=== PATIENT | male | born 1960 | race Caucasian/White ===

== ENCOUNTER 2018-01-02 08:45 | Outpatient (CLI) | payer OTHER | END 2018-01-02 08:46 | disposition home or self-care (01) | LOC: DTY/OP 08:45 | PROVIDERS: ATTEND Obstetrics & Gynecology | DX: E11.9 Type 2 diabetes mellitus without complications (principal) | CPT/HCPCS: 97802 ==

== ENCOUNTER 2019-02-11 12:33 | Inpatient (IN) | payer OTHER ==
[2019-02-11] MEDS ORDERED: Ketorolac Tromethamine 30 MG/ML VIAL ONE (13:42)
[2019-02-11] MEDS ORDERED: Senokot S 8.6-50 MG TAB PO PRN (16:29)
[2019-02-11] MEDS ORDERED: Ondansetron ODT 4 MG TAB PO PRN (16:29)
[2019-02-11] MEDS ORDERED: HYDROcodone/Acetaminophen 5/325 mg Tablet PO PRN (16:29)
[2019-02-11] MEDS ORDERED: Dextrose 5% in Water 1,000 ML IV PRN (16:35)
[2019-02-11] MEDS ORDERED: HumaLOG 300 UNITS/3 ML VIAL SC PRN (16:35)
[2019-02-11] MEDS ORDERED: Dextrose 50% Abboject 50 ML SYRINGE SLOW IVP PRN (16:35)
[2019-02-11 17:22] VITALS: BMI 33.3
[2019-02-11 18:25] LABS: Troponin I Less than 0.010 ng/mL (< 0.028)
--- NOTE | 2019-02-11 18:37 | HP ---
PRIMARY CARE PHYSICIAN: Vicente Laureano MD CHIEF COMPLAINT: Chest pain and shortness of breath. HISTORY OF PRESENT ILLNESS: Mr. Dukes is a 58-year-old man, who reported to the emergency room at [place] today after experiencing 2 days of pressure-type chest to the left chest wall with shortness of breath. The patient reports he had a similar type of chest pain yesterday, resolved, and when it came back today, he decided to go ahead and get evaluated. Reports that he has had increasing shortness of breath, especially with exertion over the last several weeks. Has a history of anxiety, and he does have some shortness of breath with that, but reports that this sensation and feeling are different for him. The patient does report that the pain radiates up into his neck when it gets intense. The patient had an EKG in the emergency room in [place], which showed normal sinus rhythm at 80, normal axis, no ST-T wave changes. The patient was given aspirin. First troponin was undetectable, and he was sent over to [facility] for admission for ACS rule out. The patient does have a history of diabetes and depression. Takes low-dose lisinopril for kidney protection. States that his blood pressure usually runs in the 1-teens and takes a low-dose simvastatin for protection as well. PAST MEDICAL HISTORY: Kidney stones; diabetes, type 2, on insulin. PAST SURGICAL HISTORY: Had stents placed for the kidney stones, inguinal hernia x2 repaired, right ankle surgery. PSYCHIATRIC HISTORY: Has depression and anxiety, takes medications. SOCIAL HISTORY: Lives at home with his family. Currently uses tobacco. He chews "all day long". Denies actual smoking cigarettes. REVIEW OF SYSTEMS: The patient reports chest pain. Reports shortness of breath. Reports radiation of pain up into his neck. Denies any nausea or diaphoresis. All other systems are reviewed and are negative unless mentioned in the HPI. PHYSICAL EXAMINATION: VITAL SIGNS: Blood pressure 128/71, pulse is 75, respirations are 19, temperature is 97.8, pO2 saturations are 96% on room air. CONSTITUTIONAL: The patient appears nontoxic. He is alert and oriented to person, place, and time. HEENT: Head is atraumatic and normocephalic. Eyes; pupils are equally round and reactive to light. Extraocular muscles are intact. ENT; mouth exam is normal. Mucous membranes are moist. NECK: Normal range of motion. Trachea is midline. RESPIRATORY/CHEST: Breath sounds are clear. No wheezing is noted. Chest movement is symmetrical. CARDIOVASCULAR: Regular heart rate and rhythm. Heart sounds are normal. ABDOMEN: Nontender. Bowel sounds are heard. BACK: Normal inspection. Normal range of motion. No CVA tenderness. EXTREMITIES: Upper extremities; normal inspection. Normal range of motion. Radial pulses are equal. Lower extremities; normal inspection. Normal range of motion. Pedal pulses are normal. There is no edema noted. NEUROLOGIC: The patient is alert and oriented to person, place, and time. Speech is normal. SKIN: Warm, dry, and normal in color. PSYCHIATRIC: Has a normal affect. ALLERGIES: SULFA. CURRENT MEDICATIONS: 1. Lisinopril 10 mg p.o. daily. 2. Metformin 500 mg 2 times a day. 3. Chantix 1 tablet daily. 4. Prednisone 10 mg p.o. once a day. 5. Klonopin 1 mg p.o. p.r.n. 6. Seroquel 25 mg p.o. once a day. 7. Simvastatin 40 mg p.o. q.p.m. 8. Also takes insulin, but is not sure of which one and the amount. 9. Xanax 0.5 mg p.o. p.r.n. These medications need to be reconciled. PLAN AND ASSESSMENT: 1. Chest pain. The patient will have a stress test. Aspirin has been given in the ER. We will continue that daily. Fasting lipids will be done in the morning. TSH. 2. Diabetes, type 2. Accu-Cheks a.c. and at bedtime. Sliding scale insulin while the patient is admitted for coverage. 3. History of depression and anxiety. We will continue home medications. 4. Gastrointestinal and deep venous thrombosis prophylaxes have been started. 5. Hospital course is dependent on clinical findings. Job ID: [id number]
[2019-02-11] MEDS ORDERED: Nitroglycerin 0.4 MG TAB (25 Tab Bottle) ONE (18:42)
[2019-02-11] MEDS: Acetaminophen 325 MG TAB PO PRN (18:51)
[2019-02-11] MEDS: Famotidine 20 MG TAB PO SCH (18:51)
[2019-02-11] MEDS: Nitroglycerin 0.4 MG TAB (25 Tab Bottle) SL PRN (18:54)
[2019-02-11] MEDS ORDERED: ALPRAZolam 1 MG TAB PO PRN (19:33)
[2019-02-11] MEDS ORDERED: traMADol HCl 50 MG TAB PO PRN (19:33)
[2019-02-11] MEDS: Simvastatin 20 MG TAB PO SCH (20:46)
[2019-02-11] MEDS: Hydroxychloroquine Sulfate 200 MG TAB PO SCH (20:46)
[2019-02-11] MEDS: Insulin Glargine 50 UNITS in Pre-Filled Syringe SC SCH (20:47)
[2019-02-11] MEDS ORDERED: Non-Formulary Item 1 EACH (Insulin Glargine,Hum.Rec.Anlog [Basaglar Kwikpen U-100] 50 UNI SQ SCH (21:00)
[2019-02-12 05:10] LABS: #Basophils 0.1 thou/uL (0.0-0.2); #Eosinphils 0.3 thou/uL (0.0-0.7); #Lymphocytes 3.6 thou/uL (1.20-3.40); #Monocytes 0.7 thou/uL (0.11-0.59); #Neutrophils 4.3 thou/uL (1.40-6.50); %Basophils 0.7 % (0.0-1.0); %Eosinophils 3.5 % (0.0-10.0); %Lymphocytes 39.7 % (21.0-51.0); %Monocytes 7.6 % (0.0-10.0); %Neutrophils 48.4 % (42.0-75.0); Hemoglobin 13.6 g/dL (14.0-18.0); Mean Corpuscular HGB CONC 33.6 g/dL (32.0-36.0); Mean Corpuscular Hemoglobin 30.3 pg (27.0-31.0); Mean Corpuscular Volume 90.3 fL (78.0-98.0); Mean Platelet Volume 7.4 fL (7.4-10.4); Platelet Count 229 thou/uL (130-400); RBC Distribution Width 12.8 % (11.5-14.5); Red Blood Cell (RBC) Count 4.48 mill/uL (4.70-6.10)
[2019-02-12 05:30] LABS: Anion Gap 10 mmol/L (10-20); BUN (Urea Nitrogen) 20 mg/dL (8.4-25.7); Calc. Creatinine Clearance 96 mL/min (70-130); Calcium 9.6 mg/dL (7.8-10.44); Carbon Dioxide 27 mmol/L (22-29); Cardiac Risk 2.8 (Less than 4.5); Chloride 107 mmol/L (98-107); Cholesterol 94 mg/dl (< 200 Desired); Estimated GFR-MDRD 62; Glucose 125 mg/dL (70-105); HDL Cholesterol 33 mg/dL (>60 Neg Risk); LDL Cholesterol, Calculated 27 mg/dL; Potassium 3.9 mmol/L (3.5-5.1); Sodium 140 mmol/L (136-145); Triglycerides 168 mg/dL (Less than 150)
[2019-02-12] MEDS: Lisinopril 5 MG TAB PO SCH (07:51)
[2019-02-12] MEDS: Hydroxychloroquine Sulfate 200 MG TAB PO SCH ×2 (07:52→20:32)
[2019-02-12] MEDS: Insulin Glargine 50 UNITS in Pre-Filled Syringe SC SCH ×3 (07:52→20:34)
[2019-02-12] MEDS: Famotidine 20 MG TAB PO SCH ×2 (07:52→20:33)
[2019-02-12] MEDS: predniSONE 20 MG TAB PO SCH (07:52)
[2019-02-12] MEDS: Acetaminophen 325 MG TAB PO PRN ×2 (07:57→20:38)
[2019-02-12] MEDS ORDERED: (Vortioxetine Hydrobromide [Trintellix] 20 MG) PO SCH (09:00)
[2019-02-12] MEDS ORDERED: Enoxaparin Sodium 40 MG/0.4 ML SYRINGE SC SCH (09:00)
[2019-02-12] MEDS ORDERED: traMADol HCl 50 MG TAB PO PRN (09:10)
[2019-02-12] MEDS: Nitroglycerin 0.4 MG TAB (25 Tab Bottle) SL PRN ×3 (10:43→15:40)
--- NOTE | 2019-02-12 10:47 | NM ---
NM Cardiac Stress W EF WF HISTORY: Chest pain COMPARISON: None. FINDINGS: Examination is performed using 27 mCi of 90 9M technetium sestamibi on the stress and 30.6 mCi on the resting images. This shows a normal distribution of radiopharmaceutical without signs of ischemia or scar. Wall motion: There is symmetric contractility to the ventricle. Left ventricular ejection fraction: The calculated left ventricular ejection fraction is 60%. IMPRESSION: Unremarkable myocardial perfusion study.
[2019-02-12] MEDS ORDERED: Communication Order-Pharmacy FS SCH (13:45)
--- NOTE | 2019-02-12 14:25 | CON ---
DATE OF CONSULTATION: 02/12/2019 REASON FOR CONSULTATION: Chest pain. HISTORY OF PRESENT ILLNESS: Mr. Dukes is a pleasant 58-year-old white gentleman, who comes to the hospital for chest pain. He has had pain for the last 2 days. He states that the pain is described as a tightness in the midsternal area. It was continuous for about a day on Saturday, today is . He woke up yesterday and the pain was still there and actually continued to get worse as he walked around, so he decided to come in for evaluation. He was ruled out with negative troponins and had a stress test that was negative for reversible ischemia. When he came back from the stress test, he continued to have episodes of chest pain, described as a tightness in the midsternal area. He received a couple of nitro sublinguals and he felt better. Secondary to this, Cardiology was consulted. On my evaluation, Mr. Dukes is feeling better. He is pain free. He has a history of having had a heart catheterization about 20 years ago. He states that he was having pain similar to this, and he was told his heart arteries were fine. He had remote history of tobacco use, but quit about 20 years ago, but he has been dipping ever since. PAST MEDICAL HISTORY: 1. Renal stones. 2. Type 2 diabetes, insulin dependent. SURGICAL HISTORY: 1. Urethral stents secondary to kidney stones. 2. Inguinal hernia repair x2. 3. Right ankle surgery. SOCIAL HISTORY: Dips tobacco. Does not smoke. Remote history of tobacco, quit 20 years ago. No drug use. No alcohol use. OUTPATIENT MEDICATIONS: 1. Tramadol p.r.n. 2. Metformin 500 mg b.i.d. 3. Insulin glargine 50 units twice a day. 4. Simvastatin 10 mg q.h.s. 5. Plaquenil. 6. Brintellix 20 mg a day. 7. Prednisone 10 mg a day. 8. Lisinopril 5 mg a day. 9. Seroquel. 10. Alprazolam. 11. Humalog. ALLERGIES: NO KNOWN DRUG ALLERGIES. REVIEW OF SYSTEMS: A 12-point review of systems was done and all was negative unless stated in the history of present illness. FAMILY HISTORY: Noncontributory. PHYSICAL EXAMINATION: VITAL SIGNS: Temperature 99.3, pulse 73, respiratory rate 16, sat 98% on room air, and blood pressure 94/53. GENERAL: Awake, alert, and oriented x3. No distress. HEENT: Normocephalic and atraumatic. NECK: Supple. LUNGS: Clear. CARDIOVASCULAR: S1 and S2. No S3 or S4. No murmurs. ABDOMEN: Soft. Positive bowel sounds. EXTREMITIES: No edema. SKIN: Warm and dry. LABORATORY DATA: Laboratory work was reviewed. CBC has a white count of 9, hemoglobin of 13.6, hematocrit 40, and platelet count of 229. Coags, D-dimer was undetectable. Chemistry was unremarkable. Glucose was between 79 and 275. Troponin was undetectable x2. LDL was 27, HDL was 33, and triglycerides of 168. Stress test was reviewed, EF 60%. No reversible ischemia. ASSESSMENT AND PLAN: 1. Chest pain. This is ongoing. He had a normal stress test; however, he continues to have episodes of chest pain. We will try to further risk stratify with a heart catheterization. I spoke with him at length about the risks and benefits of the procedure. Risks including but not limited to stroke, myocardial infarction, , bleeding, need for blood transfusion, limb loss, organ loss, need for emergent bypass surgery, and need for redo procedures. The patient understands and verbalized understanding of this and agrees to proceed. Moderate sedation was also discussed. He agrees to this as well. 2. We will plan on doing right radial catheterization tomorrow. Thank you for letting us to participate in the care of your patient. We will follow. Job ID: [id number]
--- NOTE | 2019-02-12 17:13 | EKG ---
Test Reason : CP Blood Pressure : / mmHG Vent. Rate : 082 BPM Atrial Rate : 082 BPM P-R Int : 142 ms QRS Dur : 090 ms QT Int : 376 ms P-R-T Axes : 055 -41 001 degrees QTc Int : 439 ms Normal sinus rhythm Left axis deviation Abnormal ECG When compared with ECG of 11-FEB-2019 12:50, (Unconfirmed) No significant change was found Confirmed by DR. Santos MYERS ([id number]) on 02/12/2019 5:12:58 PM Referred By: SHERRI Confirmed By:DR. Santos MYERS
[2019-02-12] MEDS: Simvastatin 20 MG TAB PO SCH (20:31)
--- NOTE | 2019-02-12 22:19 | PDOC.HOSPP ---
- Subjective Encounter Date: 02/12/19 Encounter Time: 14:00 Subjective: Patient seen and examined for CP. On and off chest pain - resolving with nitro. No other complaints. No overnight events - Objective Vital Signs & Weight: Vital Signs (12 hours) Temp Pulse Resp BP BP Pulse Ox 02/12/19 19:59 98.4 F 91 20 111/63 96 02/12/19 19:53 14 98 02/12/19 16:00 98.2 F 94 25 H 117/59 L 93 L 02/12/19 15:47 16 101/55 L 02/12/19 11:35 99.3 F 73 16 94/53 L 98 Weight Weight 226 lb I&O: 02/11/19 02/12/19 02/13/19 06:59 06:59 06:59 Intake Total 360 900 Balance 360 900 Result Diagrams: 02/12/19 04:48 02/12/19 04:48 Additional Labs: Accuchecks 02/12/19 02/12/19 02/12/19 20:31 16:26 10:38 POC Glucose 207 H 271 H 178 H Radiology Reviewed by me: Yes (CXR - negative) EKG Reviewed by me: Yes (Tele SR) Hospitalist ROS - Review of Systems Respiratory: denies: cough, dry, shortness of breath, hemoptysis, SOB with excertion, pleuritic pain, sputum, wheezing, other Cardiovascular: denies: chest pain, palpitations, orthopnea, paroxysmal noc. dyspnea, edema, light headedness, other - Medication Medications: Active Medications Generic Name Dose Route Start Last Admin Trade Name Freq PRN Reason Stop Dose Admin Acetaminophen 650 mg 02/11/19 16:29 02/12/19 20:38 Tylenol PO 650 mg Q4H PRN Administration Headache/Fever/Mild Pain (1-3) Albuterol/Ipratropium 3 ml 02/11/19 18:15 02/12/19 19:53 Duoneb NEB 3 ml [id number] PRN Administration SOB &/or Wheezing Famotidine 20 mg 02/11/19 21:00 02/12/19 20:33 Pepcid PO 20 mg BID KIRIT Administration Hydroxychloroquine Sulfate 200 mg 02/11/19 21:00 02/12/19 20:32 Plaquenil PO 200 mg BID KIRIT Administration Insulin Glargine 50 units/ 0.5 mls @ 0 mls/hr 02/11/19 21:00 02/12/19 20:34 Miscellaneous Medication SC 02/13/19 00:01 0.5 mls BID KIRIT Administration Insulin Human Lispro 0 units 02/11/19 16:35 02/12/19 17:47 Humalog SC 02/13/19 00:01 4 unit .MILD SLIDING SCALE PRN Administration Mild Correctional Scale Lisinopril 5 mg 02/12/19 09:00 02/12/19 07:51 Zestril PO 5 mg DAILY KIRIT Administration Nitroglycerin 0.4 mg 02/11/19 18:43 02/12/19 15:40 Nitrostat SL 0.4 mg Q5MIN PRN Administration Chest Pain Prednisone 10 mg 02/12/19 09:00 02/12/19 07:52 Prednisone PO 10 mg DAILY KIRIT Administration Quetiapine Fumarate 50 mg 02/11/19 21:00 02/12/19 20:33 Seroquel PO 50 mg HS KIRIT Administration Simvastatin 10 mg 02/11/19 21:00 02/12/19 20:31 Zocor PO 10 mg HS KIRIT Administration - Exam General Appearance: NAD Neck: supple, no JVD Heart: RRR, no gallops Respiratory: CTAB, no rales Gastrointestinal: soft, non-tender, normal bowel sounds Extremities: no edema Hosp A/P (1) Chest pain Code(s): R07.9 - CHEST PAIN, UNSPECIFIED Status: Acute (2) HTN (hypertension) Code(s): I10 - ESSENTIAL (PRIMARY) HYPERTENSION Status: Chronic (3) DM2 (diabetes mellitus, type 2) Status: Chronic Qualifiers: Chronic kidney disease stage: stage 2 (mild) (4) Obesity (BMI 30.0-34.9) Code(s): E66.9 - OBESITY, UNSPECIFIED Status: Chronic (5) Anxiety Code(s): F41.9 - ANXIETY DISORDER, UNSPECIFIED Status: Chronic - Plan Stress test - no reversible ischemia Consult Cardiology Cont sliding scale Cont ASA Cont other meds as above
[2019-02-13] MEDS: Acetaminophen 325 MG TAB PO PRN (00:36)
[2019-02-13] MEDS: Sodium Chloride 0.9% 1,000 ML IV SCH ×2 (00:39→09:26)
[2019-02-13] MEDS: Hydroxychloroquine Sulfate 200 MG TAB PO SCH ×2 (05:19→20:49)
[2019-02-13] MEDS: predniSONE 20 MG TAB PO SCH (05:19)
[2019-02-13] MEDS: Famotidine 20 MG TAB PO SCH ×2 (05:20→20:49)
[2019-02-13] MEDS: Lisinopril 5 MG TAB PO SCH (05:21)
[2019-02-13] MEDS ORDERED: Lidocaine 1% (PF) 30 ML VIAL ONE ×2 (09:30→10:14)
[2019-02-13] MEDS ORDERED: Iopamidol 370 76% 100 ML VIAL ONE (09:39)
[2019-02-13] MEDS ORDERED: Iopamidol 370 76% 50 ML VIAL FS ONE (09:39)
[2019-02-13] MEDS ORDERED: Verapamil 5 MG/2 ML VIAL ONE (10:15)
[2019-02-13] MEDS ORDERED: Heparin 10,000 UNITS/1 ML VIAL ONE (10:15)
[2019-02-13] MEDS ORDERED: Nitroglycerin 100MG/250ML BOT 250 ML ONE (10:15)
[2019-02-13] MEDS ORDERED: Midazolam HCl 2 mg/2 ml Vial ONE (10:23)
[2019-02-13] MEDS ORDERED: Fentanyl 100 MCG/2 ML VIAL ONE (10:23)
[2019-02-13] MEDS ORDERED: TICAGRELOR 90 MG TABLET ONE (11:04)
[2019-02-13] MEDS ORDERED: Morphine 2 MG/ML SYRINGE SLOW IVP PRN (11:19)
[2019-02-13] MEDS ORDERED: Sodium Chloride 0.9% 500 ML IV SCH (11:30)
[2019-02-13] MEDS ORDERED: Diabetic Tussin 200 MG/10 ML UDCUP PO PRN (11:58)
[2019-02-13] MEDS ORDERED: guaiFENesin ER 600 MG TAB PO SCH (12:15)
--- NOTE | 2019-02-13 16:55 | EKG ---
Test Reason : C/P Blood Pressure : / mmHG Vent. Rate : 067 BPM Atrial Rate : 067 BPM P-R Int : 158 ms QRS Dur : 106 ms QT Int : 410 ms P-R-T Axes : 064 -33 -03 degrees QTc Int : 433 ms Normal sinus rhythm Left axis deviation Abnormal ECG When compared with ECG of 12-FEB-2019 10:57, No significant change was found Confirmed by DR. Santos MYERS ([id number]) on 02/13/2019 4:55:09 PM Referred By: SHERRI Confirmed By:DR. Santos MYERS
[2019-02-13] MEDS: HumaLOG 300 UNITS/3 ML VIAL SC PRN (18:01)
[2019-02-13] MEDS: guaiFENesin ER 600 MG TAB PO SCH (20:49)
[2019-02-13] MEDS: Simvastatin 20 MG TAB PO SCH (20:49)
[2019-02-13] MEDS: TICAGRELOR 90 MG TABLET PO SCH (20:50)
--- NOTE | 2019-02-13 21:02 | PDOC.HOSPP ---
- Subjective Encounter Date: 02/13/19 Encounter Time: 14:30 Subjective: Patient seen and examined for CP/Abn stress test. s/p RCA stent. No new complaints. No overnight events - Objective Vital Signs & Weight: Vital Signs (12 hours) Temp Pulse Pulse Resp BP BP BP 02/13/19 19:39 02/13/19 18:56 98.6 F 90 12 119/65 02/13/19 15:43 99.0 F 91 18 118/59 L 02/13/19 14:09 93 125/64 02/13/19 11:50 97.3 F L 76 16 113/62 02/13/19 11:40 73 18 113/62 02/13/19 09:23 119/67 Pulse Ox Pulse Ox 02/13/19 19:39 92 L 02/13/19 18:56 92 L 02/13/19 15:43 97 02/13/19 14:09 91 L 02/13/19 11:50 96 02/13/19 11:40 96 02/13/19 09:23 Weight Weight 226 lb I&O: 02/12/19 02/13/19 02/14/19 06:59 06:59 06:59 Intake Total 360 1588 1290 Balance 360 1588 1290 Result Diagrams: 02/12/19 04:48 02/12/19 04:48 Additional Labs: Accuchecks 02/13/19 02/13/19 02/13/19 20:31 16:42 11:52 POC Glucose 202 H 177 H 88 02/13/19 06:01 POC Glucose 106 EKG Reviewed by me: Yes (Tele SR) Hospitalist ROS - Review of Systems Respiratory: denies: cough, dry, shortness of breath, hemoptysis, SOB with excertion, pleuritic pain, sputum, wheezing, other Cardiovascular: denies: chest pain, palpitations, orthopnea, paroxysmal noc. dyspnea, edema, light headedness, other - Medication Medications: Active Medications Generic Name Dose Route Start Last Admin Trade Name Freq PRN Reason Stop Dose Admin Acetaminophen 650 mg 02/11/19 16:29 02/13/19 00:36 Tylenol PO 650 mg Q4H PRN Administration Headache/Fever/Mild Pain (1-3) Albuterol/Ipratropium 3 ml 02/11/19 18:15 02/12/19 19:53 Duoneb NEB 3 ml [id number] PRN Administration SOB &/or Wheezing Famotidine 20 mg 02/11/19 21:00 02/13/19 20:49 Pepcid PO 20 mg BID KIRIT Administration Guaifenesin 600 mg 02/13/19 21:00 02/13/19 20:49 Mucinex PO 600 mg Q12HR KIRIT Administration Hydroxychloroquine Sulfate 200 mg 02/11/19 21:00 02/13/19 20:49 Plaquenil PO 200 mg BID KIRIT Administration Insulin Human Lispro 0 units 02/13/19 17:37 02/13/19 18:01 Humalog SC 2 unit .MODERATE SLIDING SC PRN Administration Moderate Correctional Scale Lisinopril 5 mg 02/12/19 09:00 02/13/19 05:21 Zestril PO Not Given DAILY KIRIT Nitroglycerin 0.4 mg 02/11/19 18:43 02/12/19 15:40 Nitrostat SL 0.4 mg Q5MIN PRN Administration Chest Pain Prednisone 10 mg 02/12/19 09:00 02/13/19 05:19 Prednisone PO 10 mg DAILY KIRIT Administration Quetiapine Fumarate 50 mg 02/11/19 21:00 02/13/19 20:50 Seroquel PO 50 mg HS KIRIT Administration Simvastatin 10 mg 02/11/19 21:00 02/13/19 20:49 Zocor PO 10 mg HS KIRIT Administration Ticagrelor 90 mg 02/13/19 21:00 02/13/19 20:50 Brilinta PO 90 mg BID KIRIT Administration - Exam General Appearance: NAD Neck: supple, no JVD Heart: RRR, no rubs Respiratory: CTAB, no wheezes, no ronchi Gastrointestinal: soft, non-tender, normal bowel sounds Extremities: no edema Hosp A/P (1) Chest pain Code(s): R07.9 - CHEST PAIN, UNSPECIFIED Status: Acute (2) HTN (hypertension) Code(s): I10 - ESSENTIAL (PRIMARY) HYPERTENSION Status: Chronic (3) DM2 (diabetes mellitus, type 2) Status: Chronic Qualifiers: Chronic kidney disease stage: stage 2 (mild) (4) Obesity (BMI 30.0-34.9) Code(s): E66.9 - OBESITY, UNSPECIFIED Status: Chronic (5) Anxiety Code(s): F41.9 - ANXIETY DISORDER, UNSPECIFIED Status: Chronic (6) CAD (coronary artery disease) Code(s): I25.10 - ATHSCL HEART DISEASE OF [place] CORONARY ARTERY W/O ANG PCTRS Status: Acute (7) Abnormal stress test Status: Acute - Plan s/p RCA stent Cont dual antiplatelet Rx Resume Lantus at low dose Cont sliding scale Cont other meds as above Dc home once cleard by Cardiology
[2019-02-13] MEDS: Insulin Glargine 25 UNITS in Pre-Filled Syringe SC SCH (21:09)
[2019-02-14 04:36] LABS: #Eosinphils 0.3 thou/uL (0.0-0.7); #Lymphocytes 2.1 thou/uL (1.20-3.40); #Monocytes 0.7 thou/uL (0.11-0.59); #Neutrophils 6.8 thou/uL (1.40-6.50); %Basophils 0.2 % (0.0-1.0); %Eosinophils 3.2 % (0.0-10.0); %Monocytes 6.9 % (0.0-10.0); %Neutrophils 68.7 % (42.0-75.0); Hemoglobin 13.6 g/dL (14.0-18.0); Mean Corpuscular HGB CONC 34.4 g/dL (32.0-36.0); Mean Corpuscular Hemoglobin 31.3 pg (27.0-31.0); Mean Corpuscular Volume 91.1 fL (78.0-98.0); Mean Platelet Volume 7.3 fL (7.4-10.4); Platelet Count 218 thou/uL (130-400); RBC Distribution Width 12.7 % (11.5-14.5); Red Blood Cell (RBC) Count 4.34 mill/uL (4.70-6.10); White Blood Cell (WBC) Count 9.9 thou/uL (4.8-10.8)
[2019-02-14 05:12] LABS: ALT (SGPT) 20 U/L (8-55); AST (SGOT) 13 U/L (5-34); Albumin 3.9 g/dL (3.5-5.0); Alkaline Phosphatase 95 U/L (40-150); Anion Gap 13 mmol/L (10-20); BUN (Urea Nitrogen) 14 mg/dL (8.4-25.7); Bilirubin, Total 0.5 mg/dL (0.2-1.2); Calc. Creatinine Clearance 96 mL/min (70-130); Calcium 9.2 mg/dL (7.8-10.44); Carbon Dioxide 23 mmol/L (22-29); Chloride 106 mmol/L (98-107); Estimated GFR-MDRD 62; Globulin 2.3 g/dL (2.4-3.5); Glucose 219 mg/dL (70-105); Potassium 3.9 mmol/L (3.5-5.1); Protein, Total 6.2 g/dL (6.0-8.3); Sodium 138 mmol/L (136-145)
[2019-02-14] MEDS: HumaLOG 300 UNITS/3 ML VIAL SC PRN (06:11)
[2019-02-14] MEDS: Acetaminophen 325 MG TAB PO PRN ×2 (07:54→12:14)
[2019-02-14] MEDS ORDERED: Aspirin Chewable 81 MG TAB PO SCH (09:00)
[2019-02-14] MEDS: Insulin Glargine 25 UNITS in Pre-Filled Syringe SC SCH (09:46)
[2019-02-14] MEDS: Hydroxychloroquine Sulfate 200 MG TAB PO SCH (09:47)
[2019-02-14] MEDS: Lisinopril 5 MG TAB PO SCH (09:47)
[2019-02-14] MEDS: guaiFENesin ER 600 MG TAB PO SCH (09:47)
[2019-02-14] MEDS: Famotidine 20 MG TAB PO SCH (09:47)
[2019-02-14] MEDS: predniSONE 20 MG TAB PO SCH (09:47)
[2019-02-14] MEDS: TICAGRELOR 90 MG TABLET PO SCH (09:59)
[2019-02-14 12:40] VITALS: BP 111/59; TEMP 98.7
--- NOTE | 2019-02-14 13:27 | EKG ---
Test Reason : CHEST PAIN Blood Pressure : / mmHG Vent. Rate : 082 BPM Atrial Rate : 082 BPM P-R Int : 138 ms QRS Dur : 094 ms QT Int : 374 ms P-R-T Axes : 051 -42 016 degrees QTc Int : 436 ms Normal sinus rhythm Left axis deviation Abnormal ECG Confirmed by EMILY LOTT, PHUC Isaacs ([id number]), news video editor FRANCISCO STEWART ([id number]) on 02/14/2019 1:26:51 PM Referred By: EMILY Confirmed By:PHUC DIAZ MD
--- NOTE | 2019-02-14 15:50 | PDOC.CPN ---
- Subjective Date: 02/14/19 Time: 15:48 - Review of Systems General: denies: fever/chills, weight/appetite/sleep changes, night sweats, fatigue Respiratory: denies: cough, congestion, shortness of breath, exercise intolerance Cardiovascular: denies: chest pain, palpitation, edema, paroxysmal nocturnal dyspnea, orthopnea Gastrointestinal: denies: nausea, vomiting, diarrhea, constipation, abd pain, GI bleeding Musculoskeletal: denies: pain, tenderness, stiffness, swelling, arthritis/ arthralgias Neurological: denies: numbness, syncope, seizure, weakness - Objective Allergies/Adverse Reactions: Allergies Allergy/AdvReac Type Severity Reaction Status Date / Time No Known Allergies Allergy Unverified 02/11/19 16:35 Visit Medications: Current Medications Acetaminophen (Tylenol) 650 mg PO Q4H PRN PRN Reason: Headache/Fever/Mild Pain (1-3) Last Admin: 02/14/19 12:14 Dose: 650 mg Albuterol/Ipratropium (Duoneb) 3 ml NEB [id number] PRN PRN Reason: SOB &/or Wheezing Last Admin: 02/12/19 19:53 Dose: 3 ml Alprazolam (Xanax) 1 mg PO DAILY PRN PRN Reason: Anxiety Aspirin (Aspirin Chewable) 81 mg PO DAILY [facility] Last Admin: 02/14/19 09:47 Dose: 81 mg Dextrose/Water (Dextrose 50%) 25 gm SLOW IVP PRN PRN PRN Reason: Hypoglycemia Famotidine (Pepcid) 20 mg PO BID [facility] Last Admin: 02/14/19 09:47 Dose: 20 mg Glucagon (Glucagon) 1 mg IM PRN PRN PRN Reason: Hypoglycemia Guaifenesin (Mucinex) 600 mg PO Q12HR [facility] Last Admin: 02/14/19 09:47 Dose: 600 mg Guaifenesin (Robitussin Sf) 200 mg PO Q4H PRN PRN Reason: Cough Last Admin: 02/14/19 02:50 Dose: 200 mg Hydroxychloroquine Sulfate (Plaquenil) 200 mg PO BID [facility] Last Admin: 02/14/19 09:47 Dose: 200 mg Dextrose/Water (D5w) 1,000 mls @ 0 mls/hr IV .Q0M PRN PRN Reason: Hypoglycemia Insulin Glargine 25 units/ (Miscellaneous Medication) 0.25 mls @ 0 mls/hr SC BID [facility] Last Admin: 02/14/19 09:46 Dose: 0.25 mls Insulin Human Lispro (Humalog) 0 units SC .MODERATE SLIDING SC PRN PRN Reason: Moderate Correctional Scale Last Admin: 02/14/19 06:11 Dose: 4 unit Lisinopril (Zestril) 5 mg PO DAILY [facility] Last Admin: 02/14/19 09:47 Dose: 5 mg Metoprolol Succinate (Toprol Xl) 25 mg PO DAILY [facility] Last Admin: 02/14/19 09:47 Dose: 25 mg Morphine Sulfate (Morphine) 2 mg SLOW IVP Q4H PRN PRN Reason: Moderate Chest Pain (4-6) Nitroglycerin (Nitrostat) 0.4 mg SL Q5MIN PRN PRN Reason: Chest Pain Last Admin: 02/12/19 15:40 Dose: 0.4 mg Ondansetron HCl (Zofran Odt) 4 mg PO Q6H PRN PRN Reason: Nausea/Vomiting Prednisone (Prednisone) 10 mg PO DAILY [facility] Last Admin: 02/14/19 09:47 Dose: 10 mg Quetiapine Fumarate (Seroquel) 50 mg PO [facility] Last Admin: 02/13/19 20:50 Dose: 50 mg Senna/Docusate Sodium (Senokot S) 2 tab PO BID PRN PRN Reason: Constipation Simvastatin (Zocor) 10 mg PO HS [facility] Last Admin: 02/13/19 20:49 Dose: 10 mg Sodium Chloride (Flush - Normal Saline) 10 ml IVF PRN PRN PRN Reason: Saline Flush Ticagrelor (Brilinta) 90 mg PO BID [facility] Last Admin: 02/14/19 09:59 Dose: 90 mg Tramadol HCl (Ultram) 50 mg PO Q4H PRN PRN Reason: Moderate Pain (4-6) Vital Signs & Weight: Vital Signs Temp Pulse Pulse Pulse Resp BP BP 02/14/19 11:56 98.7 F 76 20 02/14/19 10:43 82 93 110/60 121/64 02/14/19 07:59 98.9 F 97 16 BP Pulse Ox Pulse Ox 02/14/19 11:56 111/59 L 93 L 02/14/19 10:43 93 L 02/14/19 07:59 122/68 94 L Weight 218 lb 12.8 oz - Physical Exam General: alert & oriented x3, appears well Neck: supple neck Cardiac: regular rate and rhythm, no murmur Lungs: clear to auscultation, no wheeze, rales, rhonchi Neuro: grossly intact Abdomen: unremarkable - Labs Result Diagrams: 02/14/19 04:22 02/14/19 04:22 Troponin/CKMB Troponin I Less than 0.010 ng/mL (< 0.028) 02/12/19 19:54 - Assessment/Plan Assessment/Plan: 1. CAD s/p PCI-RCA with LEVI 2. Tobacco abuse 3. DM-II Stable. No changes to care. F/U in 3-4 weeks.
--- NOTE | 2019-02-15 04:00 | DIS ---
DATE OF ADMISSION: 02/11/2019 DATE OF DISCHARGE: 02/14/2019 PRIMARY CARE PROVIDER: Vicente Laureano MD DISCHARGE DIAGNOSIS: Coronary artery disease. CONDITION OF PATIENT ON THE DAY OF DISCHARGE: Stable. I assessed Mr. Dukes on the day of discharge. He denies any chest pain or shortness of breath. Vital signs are stable. S1 and S2 are heard, regular. Lungs are clear to auscultation bilaterally. CONSULTATIONS DURING THIS HOSPITALIZATION: Cardiology, Roderick Oscar MD DISCHARGE MEDICATIONS: The patient has been started on aspirin 81 mg daily. He has been advised to resume metformin with evening dose on February 15, 2019. His Lantus insulin has been decreased to 25 units 2 times a day. His Toprol-XL dose has been increased to 25 mg daily. He has also been started on Brilinta 90 mg 2 times a day. Otherwise, no change was made to his pre-admission home medications, which include: 1. Xanax 1 mg daily as needed. 2. Humalog 5 units 2 times a day. 3. Plaquenil 200 mg 2 times a day. 4. Lisinopril 5 mg daily. 5. Prednisone 10 mg daily. 6. Seroquel 50 mg at bedtime. 7. Simvastatin 10 mg at bedtime. 8. Trintellix 20 mg daily. HOSPITAL COURSE: Mr. Dukes is a pleasant 58-year-old gentleman, who was admitted to [facility] on February 11, 2019, for chest pain. Please refer to Ms. Victor's history and physical note dated February 11, 2019, for further details. He had a normal stress test. However, he continued to have episodes of chest pain. He was seen by Cardiology Service and underwent cardiac catheterization. He was found to have severe proximal to mid RCA disease. He had PCI to RCA with drug-eluting stent. He had episodes of hypoglycemia, which is why his long-acting insulin dose was decreased. He was cleared for discharge by Cardiology Service and is being discharged home in a stable condition. On the day of discharge, he has sodium 138, potassium 3.9, creatinine 1.20, white count 9900, hemoglobin 13.6, and platelet count 218,000. FOLLOWUP APPOINTMENTS: The patient is advised to follow up with primary care provider in 3 days' time and with Dr. Oscar in 2 to 3 weeks' time. Many thanks for allowing me to participate in your patient's care. Please feel free to contact me with any questions or concerns. DISCHARGE DESTINATION: Home. TIME SPENT: Total amount of time spent coordinating this discharge: 32 minutes. Job ID: [id number]
--- NOTE | 2019-02-15 10:35 | EKG ---
Test Reason : S/P CATH Blood Pressure : / mmHG Vent. Rate : 089 BPM Atrial Rate : 089 BPM P-R Int : 122 ms QRS Dur : 094 ms QT Int : 360 ms P-R-T Axes : 030 -45 012 degrees QTc Int : 438 ms Normal sinus rhythm Left axis deviation Abnormal ECG When compared with ECG of 13-FEB-2019 07:43, (Unconfirmed) No significant change was found Confirmed by DR. Santos MYERS (3) on 02/15/2019 10:35:10 AM Referred By: JOHN Confirmed By:DR. Santos MYERS
== END 2019-02-14 17:03 | disposition home or self-care (01) | DRG 247 ==
LOC: ERS 12:33 → 2SW 13:00 → OBSVTOIN 13:00
PROVIDERS: ADMIT Internal Medicine; ATTEND Internal Medicine
PROC: 027034Z Dilation of Coronary Artery, One Artery with Drug-eluting Intraluminal Device, Percutaneous Approach (ICD-10-PCS; principal; 2019-02-13)
PROC: 4A023N7 Measurement of Cardiac Sampling and Pressure, Left Heart, Percutaneous Approach (ICD-10-PCS; 2019-02-13)
PROC: 02C03ZZ Extirpation of Matter from Coronary Artery, One Artery, Percutaneous Approach (ICD-10-PCS; 2019-02-13)
PROC: B2111ZZ Fluoroscopy of Multiple Coronary Arteries using Low Osmolar Contrast (ICD-10-PCS; 2019-02-13)
PROC: B2151ZZ Fluoroscopy of Left Heart using Low Osmolar Contrast (ICD-10-PCS; 2019-02-13)
DX: I25.10 Atherosclerotic heart disease of native coronary artery without angina pectoris (principal); F32.9 Major depressive disorder, single episode, unspecified; F41.9 Anxiety disorder, unspecified; F17.220 Nicotine dependence, chewing tobacco, uncomplicated; E11.22 Type 2 diabetes mellitus with diabetic chronic kidney disease; N18.2 Chronic kidney disease, stage 2 (mild); E66.9 Obesity, unspecified; Z68.30 Body mass index [BMI] 30.0-30.9, adult; I12.9 Hypertensive chronic kidney disease with stage 1 through stage 4 chronic kidney disease, or unspecified chronic kidney disease; E11.649 Type 2 diabetes mellitus with hypoglycemia without coma; Z87.442 Personal history of urinary calculi; Z88.2 Allergy status to sulfonamides; Z79.84 Long term (current) use of oral hypoglycemic drugs; Z79.4 Long term (current) use of insulin; Z79.52 Long term (current) use of systemic steroids; Z79.899 Other long term (current) drug therapy
CPT/HCPCS: 36415; 36416; 76942; 78452; 80048; 80053; 80061; 84443; 84484; 85025; 85347; 85379; 90471; 90732; 92933; 93005; 93010; 93017; 93458; 93798; 94640; 96374; 99152; 99153; A9500; C1760; C1769; C1874; C1887; C9602; G0009; J0153; J1644; J1650; J1815; J1885; J2001; J2250; J3010; J7512; Q9967

== ENCOUNTER 2019-02-24 09:51 | Inpatient (IN) | payer OTHER ==
[2019-02-24 10:40] LABS: Hemoglobin 14.2 g/dL (14.0-18.0); Mean Corpuscular HGB CONC 33.3 g/dL (32.0-36.0); Mean Corpuscular Hemoglobin 29.8 pg (27.0-31.0); Mean Corpuscular Volume 89.5 fL (78.0-98.0); Mean Platelet Volume 7.4 fL (7.4-10.4); Platelet Count 338 thou/uL (130-400); RBC Distribution Width 12.7 % (11.5-14.5); Red Blood Cell (RBC) Count 4.76 mill/uL (4.70-6.10); White Blood Cell (WBC) Count 21.8 thou/uL (4.8-10.8)
--- NOTE | 2019-02-24 10:41 | RAD ---
EXAM: Single view of the chest HISTORY: Weakness COMPARISON: 02/11/2019 FINDINGS: Single view of the chest shows a normal sized cardiomediastinal silhouette. There is no erica dence of consolidation, mass, or pleural effusion. The bones are unremarkable. IMPRESSION: No evidence of acute cardiopulmonary disease
[2019-02-24 10:46] LABS: ALT (SGPT) 26 U/L (8-55); AST (SGOT) 22 U/L (5-34); Albumin 4.6 g/dL (3.5-5.0); Alkaline Phosphatase 99 U/L (40-150); Anion Gap 15 mmol/L (10-20); BUN (Urea Nitrogen) 20 mg/dL (8.4-25.7); Bilirubin, Total 0.5 mg/dL (0.2-1.2); CK (CPK) 120 U/L (30-200); Calc. Creatinine Clearance 0 mL/min (70-130); Calcium 10.1 mg/dL (7.8-10.44); Carbon Dioxide 21 mmol/L (22-29); Chloride 107 mmol/L (98-107); Estimated GFR-MDRD 60; Globulin 2.4 g/dL (2.4-3.5); Potassium 4.3 mmol/L (3.5-5.1); Sodium 139 mmol/L (136-145)
[2019-02-24 10:59] LABS: Band 17 % (5-11); Glucose 51 mg/dL (70-105); Lymphocytes 13 % (21-51); MDiff Complete? YES; Monocytes 5 % (0-10); Neutrophil 64 % (42-75); RBC Morphology Normal; Reactive Lymphocytes 1 % (0-10)
[2019-02-24] MEDS ORDERED: Dextrose 50% Abboject 50 ML SYRINGE ONE (11:01)
[2019-02-24] MEDS ORDERED: Piperacillin/Tazobactam 4.5 GM VIAL ONE ×2 (11:08→11:09)
[2019-02-24] MEDS ORDERED: Dextrose 50% Abboject 50 ML SYRINGE SLOW IVP SCH (11:30)
[2019-02-24] MEDS ORDERED: Benzonatate 100 MG CAP PO PRN (12:46)
[2019-02-24] MEDS ORDERED: HumaLOG 300 UNITS/3 ML VIAL SC PRN (12:46)
[2019-02-24] MEDS ORDERED: diphenhydrAMINE 25 MG CAP PO PRN (12:46)
[2019-02-24] MEDS ORDERED: Dextrose 5% in Water 1,000 ML IV PRN (12:46)
[2019-02-24] MEDS ORDERED: hydrALAZINE 20 MG/ML VIAL SLOW IVP PRN ×2 (12:46→17:18)
[2019-02-24] MEDS ORDERED: Dextrose 50% Abboject 50 ML SYRINGE SLOW IVP PRN (12:46)
[2019-02-24] MEDS ORDERED: Docusate 100 MG CAP PO PRN (12:46)
[2019-02-24] MEDS ORDERED: Calcium Carbonate 500 MG ChewTAB PO PRN (12:47)
[2019-02-24] MEDS ORDERED: Bisacodyl 5 MG TAB PO PRN (12:47)
[2019-02-24] MEDS ORDERED: Senokot S 8.6-50 MG TAB PO PRN (12:47)
[2019-02-24] MEDS ORDERED: HYDROcodone/Acetaminophen 7.5/325 mg Tablet PO PRN (12:47)
[2019-02-24] MEDS ORDERED: HYDROcodone/Acetaminophen 5/325 mg Tablet PO PRN (12:47)
[2019-02-24 14:32] VITALS: BMI 32.2
[2019-02-24] MEDS: ALPRAZolam 0.5 MG TAB PO SCH ×2 (14:53→16:21)
[2019-02-24] MEDS: Acetaminophen 325 MG TAB PO PRN (14:53)
[2019-02-24] MEDS ORDERED: Heparin 5,000 UNITS/ML VIAL SC SCH (15:00)
[2019-02-24] MEDS ORDERED: ALPRAZolam 0.5 MG TAB PO PRN (17:06)
[2019-02-24] MEDS: Piperacillin/Tazobactam 3.375 GM in Sodium Chloride 0.9% 100 ML IVPB SCH (17:27)
[2019-02-24] MEDS: HumaLOG 300 UNITS/3 ML VIAL SC PRN (17:27)
[2019-02-24] MEDS ORDERED: Ondansetron ODT 4 MG TAB PO PRN (17:32)
[2019-02-24] MEDS ORDERED: Ondansetron PF 4 MG/2 ML Vial IVP PRN (17:32)
--- NOTE | 2019-02-24 18:33 | PDOC.HHP ---
Hospitalist HPI - History of Present Illness chest pain/shortness of breath History of Present Illness: Mr. Dukes is a very pleasant 58 yo man who presents with sudden onset of lightheadedness, left sided chest pain down his left arm and shortness of breath. He was standing by his truck when it happened and states he had blurred vision, feeling as though he might pass out. The pain was a 4/10 in severity, and started at approximately 8am. He states it was constant and did not ease until he got to the ED and since then its been a 1/10 in severity. He describes a pressure in his chest. Has not had any pain or sob since having stent done on 02/[address] Oscar. He was having similar symptoms prior to stenting. Patient states he has felt well in himself except for persistently low appetite since he was discharged. Reports having a cough productive for clear sputum and was started on antibiotics by his PCP last Saturday. He has continued to feel better and denies any fever or chills. No hemoptysis. No pleuritic type chest pain. Patient states he has been checking his vitals at home and his BP has been in the 130s systolic. His HR has been between 60-90. He is scheduled to follow-up with Dr. Oscar on 03/18. Of note, patient is on chronic steroids for RA and recently undergoing taper. Was on Prednisone 10 mg PO daily last week and currently on 7.5 mg. Plan is to cut down to 5 mg PO daily next week. ED Course: In the ED he underwent laboratory studies which are notable for WCC of 22. Lactic acid normal. Patient was started on broad spectrum IV Abx. He was given IV fluids x 2L. Also due to low blood glucose of 50 he was given an amp of D50W. D-Dimer was checked and negative. Initial troponin negative. CXR: no acute intrathoracic abnormalities. EKG showed NSR, HR 97, with normal ST segments and normal T waves. Hospitalist ROS - Review of Systems Constitutional: reports: malaise. denies: fever, chills, sweats, weakness, other Eyes: reports: other (blurred vision at start of symptoms but resolved.) ENT: reports: nose congestion. denies: ear pain, ear discharge, nose pain, nose discharge, mouth pain, mouth swelling, throat pain, throat swelling, other Respiratory: reports: cough (clear sputum), shortness of breath (this morning, resolved since then). denies: dry, hemoptysis, SOB with excertion, pleuritic pain, sputum, wheezing, other Cardiovascular: reports: chest pain (as per HPI), light headedness. denies: palpitations, orthopnea, paroxysmal noc. dyspnea, edema, other Gastrointestinal: reports: other (lack of appetite since recent discharge). denies: nausea, vomiting, abdominal pain, diarrhea, constipation, melena, hematochezia Genitourinary: denies: dysuria, frequency, incontinence, hematuria, retention, other Musculoskeletal: reports: arm pain (left arm pain associated with chest pain, has resolved). denies: neck pain, shoulder pain, back pain, hand pain, leg pain , foot pain, other Skin: denies: rash, lesions, soren, bruising, other Neurological: denies: weakness, numbness, incoordination, change in speech, confusion, seizures, other - Medication Medications: Active Medications Generic Name Dose Route Start Last Admin Trade Name Freq PRN Reason Stop Dose Admin Acetaminophen 650 mg 02/24/19 12:47 02/24/19 14:53 Tylenol PO 650 mg Q4H PRN Administration Headache/Fever/Mild Pain (1-3) Piperacillin Sod/Tazobactam 100 mls @ 200 mls/hr 02/24/19 18:00 02/24/19 17: 27 Sod 3.375 gm/ Sodium Chloride IVPB 100 mls Q6HR KIRIT Administration Insulin Human Lispro 0 units 02/24/19 12:46 02/24/19 17:27 Humalog SC 4 unit .MODERATE SLIDING SC PRN Administration Moderate Correctional Scale Hospitalist History - Past Medical History Cardiac: reports: CAD Psych: reports: Anxiety, Depression Rheumatologic: reports: Rheumatoid arthritis Renal/: reports: Other (Nephrolithiasis) Endocrine: reports: Diabetes - Past Surgical History Past Surgical History: reports: Hernia Repair (Inguinal hernia x 2), Other ( Right ankle repair) Other Surgical History: Cardiac stent, 02/11 - Family History Family History: reports: no pertinent history - Social History Tobacco Type: chewing tobacco ("All day") Alcohol: reports: None Drugs: reports: none Living Situation: Alone Activity level: independent ambulation - Exam General Appearance: NAD Eye: PERRL, anicteric sclera ENT: normocephalic atraumatic, no oropharyngeal lesions, moist mucosa Neck: supple, symmetric, no lymphadenopathy Heart: RRR, no murmur, no gallops, normal peripheral pulses Respiratory: CTAB, no wheezes, no rales, no ronchi, normal chest expansion, no tachypnea Gastrointestinal: soft, non-tender, non-distended (obese), no palpable masses, no guarding, no rigidity Extremities: no edema Skin: normal turgor, no lesions, no rashes Neurological: cranial nerve grossly intact, normal sensation to touch, no weakness, no focal deficits Musculoskeletal: normal tone, normal strength, no muscle wasting Psychiatric: normal affect, normal behavior, A&O x 3 Hospitalist Results - Labs Result Diagrams: 02/25/19 04:14 02/25/19 04:14 Lab results: WBC 21.8 thou/uL (4.8-10.8) H 02/24/19 10:06 Hgb 14.2 g/dL (14.0-18.0) 02/24/19 10:06 Hct 42.6 % (42.0-52.0) 02/24/19 10:06 MCV 89.5 fL (78.0-98.0) 02/24/19 10:06 Plt Count 338 thou/uL (130-400) 02/24/19 10:06 Band Neuts % (Manual) 17 % (5-11) H 02/24/19 10:06 Sodium 139 mmol/L (136-145) 02/24/19 10:06 Potassium 4.3 mmol/L (3.5-5.1) 02/24/19 10:06 Chloride 107 mmol/L (98-107) 02/24/19 10:06 Carbon Dioxide 21 mmol/L (22-29) L 02/24/19 10:06 BUN 20 mg/dL (8.4-25.7) 02/24/19 10:06 Creatinine 1.24 mg/dL (0.7-1.3) 02/24/19 10:06 Glucose 51 mg/dL (70-105) L* 02/24/19 10:06 Lactic Acid 1.8 mmol/L (0.5-2.2) 02/24/19 11:06 Calcium 10.1 mg/dL (7.8-10.44) 02/24/19 10:06 Total Bilirubin 0.5 mg/dL (0.2-1.2) 02/24/19 10:06 AST 22 U/L (5-34) 02/24/19 10:06 ALT 26 U/L (8-55) 02/24/19 10:06 Alkaline Phosphatase 99 U/L (40-150) 02/24/19 10:06 Creatine Kinase 120 U/L (30-200) 02/24/19 10:06 Troponin I 0.017 ng/mL (< 0.028) 02/24/19 10:06 Serum Total Protein 7.0 g/dL (6.0-8.3) 02/24/19 10:06 Albumin 4.6 g/dL (3.5-5.0) 02/24/19 10:06 Lipase 30 U/L (8-78) 02/24/19 11:06 - Radiology Interpretation Chest x-ray Status: report reviewed by me Hospitalist H&P A/P - Problem (1) Shortness of breath Code(s): R06.02 - SHORTNESS OF BREATH Status: Acute Assessment and Plan: Has resolved, states not SOB as long as he is still. Recently treated for LRTI. CXR negative. Cough + clear sputum. Started on Broad spectrum antibiotics in ED, to be continued per Dr. Kang. D-Dimer negative. Echo requested. Will check BNP. Duonebs ordered PRN. (2) Cough productive of clear sputum Code(s): R05 - COUGH Status: Acute Assessment and Plan: Tessalon and Guiafensin ordered. (3) Leukocytosis Code(s): D72.829 - ELEVATED WHITE BLOOD CELL COUNT, UNSPECIFIED Status: Acute Assessment and Plan: Patient is on chronic steroids for rheumatoid arthritis, which I feel is likely causing Leukocytosis. Infective markers unremarkable and patient afebrile. No signs or symptoms of infection. UA/UCx requested. Blood cultures done in ED. Per Dr. Kang, given immunosuppression due to chronic steroids, IV Abx to be continued. Further changes as per culture results. (4) CAD (coronary artery disease) Code(s): I25.10 - ATHSCL HEART DISEASE OF [place] CORONARY ARTERY W/O ANG PCTRS Status: Acute (5) Chest pain Code(s): R07.9 - CHEST PAIN, UNSPECIFIED Status: Acute Assessment and Plan: Recent stent on 02/11, by Dr. Oscar. Initial troponin in ED normal. Further troponins to be held as per Dr. Kang's recommendations, given plan to consult Dr. Oscar. (6) DM2 (diabetes mellitus, type 2) Status: Chronic Qualifiers: Chronic kidney disease stage: stage 2 (mild) Assessment and Plan: Given low blood glucose will hold his home meds and initiate insulin sliding scale. (7) HTN (hypertension) Code(s): I10 - ESSENTIAL (PRIMARY) HYPERTENSION Status: Chronic Assessment and Plan: Hold BP meds given lightheadedness and BP on lower side. Will check orthostatic BPs. Monitor BP. (8) Lack of appetite Code(s): R63.0 - ANOREXIA Status: Acute Assessment and Plan: Open Die Inspector consult. Denies any nausea/vomiting. - Plan Plan: CODE STATUS: FULL. Surrogate decision maker is Ankita Dukes. Of note, per discussion with Dr. Kang patient is to be kept in Inpatient Status. ADDENDUM: I have notified Dr. Oscar of consultation request for tmrw, and upon case discussion Dr. Oscar has advised to trend troponins which I have added x 1, given first one was at 08:00. Also agreed with plan for Echo. Will see patient tonight.
[2019-02-24 19:57] LABS: Bilirubin Negative (Negative); Blood, Urine Negative (Negative); Glucose, Urine (Dipstick) Negative (Negative); Leukocyte Negative (Negative); Nitrite Negative (Negative); Protein, Urine (Dipstick) Negative (Neg-Trace); Urobilinogen 0.2 mg/dL (Less than 2)
[2019-02-24 20:07] LABS: Clarity Opaque (Clear)
[2019-02-24 20:09] LABS: Bacteria/HPF None Seen HPF (None Seen); Mucous/LPF 1+ LPF (<2+); RBC/HPF 0-3 HPF (0-3); Squamous Epithelial 0-3 HPF (0-3); WBC/HPF 0-3 HPF (0-3)
[2019-02-24 20:11] LABS: Urine Culture Reflex No No
[2019-02-24] MEDS ORDERED: Insulin Glargine 25 UNITS in Pre-Filled Syringe SC SCH (21:00)
[2019-02-24] MEDS ORDERED: TICAGRELOR 90 MG TABLET PO SCH (21:00)
[2019-02-24] MEDS ORDERED: Simvastatin 5 MG TAB PO SCH (21:00)
[2019-02-24] MEDS ORDERED: Vancomycin HCl 1 GM in Premix Bag 1 BAG IVPB SCH (21:00)
[2019-02-24] MEDS: Hydroxychloroquine Sulfate 200 MG TAB PO SCH (21:03)
[2019-02-24] MEDS: Famotidine 20 MG TAB PO SCH (21:06)
[2019-02-24] MEDS: Vancomycin HCl 1.5 GM in Sodium Chloride 0.9% 250 ML 300 ML IVPB SCH (22:50)
[2019-02-25] MEDS: Piperacillin/Tazobactam 3.375 GM in Sodium Chloride 0.9% 100 ML IVPB SCH ×3 (01:04→13:51)
[2019-02-25 05:11] LABS: #Eosinphils 0.3 thou/uL (0.0-0.7); #Monocytes 0.5 thou/uL (0.11-0.59); %Basophils 0.5 % (0.0-1.0); %Eosinophils 3.3 % (0.0-10.0); %Lymphocytes 38.5 % (21.0-51.0); %Monocytes 6.9 % (0.0-10.0); %Neutrophils 50.8 % (42.0-75.0); Hemoglobin 11.6 g/dL (14.0-18.0); Mean Corpuscular HGB CONC 33.2 g/dL (32.0-36.0); Mean Corpuscular Hemoglobin 30.6 pg (27.0-31.0); Mean Corpuscular Volume 92.3 fL (78.0-98.0); Mean Platelet Volume 7.3 fL (7.4-10.4); Platelet Count 249 thou/uL (130-400); RBC Distribution Width 12.6 % (11.5-14.5); Red Blood Cell (RBC) Count 3.79 mill/uL (4.70-6.10); White Blood Cell (WBC) Count 7.8 thou/uL (4.8-10.8)
[2019-02-25 05:24] LABS: Anion Gap 12 mmol/L (10-20); BUN (Urea Nitrogen) 16 mg/dL (8.4-25.7); Calc. Creatinine Clearance 79 mL/min (70-130); Calcium 8.7 mg/dL (7.8-10.44); Carbon Dioxide 23 mmol/L (22-29); Chloride 109 mmol/L (98-107); Estimated GFR-MDRD 51; Glucose 175 mg/dL (70-105); Potassium 4.5 mmol/L (3.5-5.1); Sodium 139 mmol/L (136-145)
[2019-02-25] MEDS ORDERED: Lisinopril 5 MG TAB PO SCH (09:00)
[2019-02-25] MEDS ORDERED: (Vortioxetine Hydrobromide [Trintellix] 20 MG) PO SCH (09:00)
[2019-02-25] MEDS ORDERED: TICAGRELOR 90 MG TABLET PO SCH (09:00)
[2019-02-25] MEDS ORDERED: Clopidogrel Bisulfate 75 MG TAB PO SCH (09:00)
[2019-02-25] MEDS ORDERED: predniSONE 5 MG TAB PO SCH ×2 (09:00)
[2019-02-25] MEDS ORDERED: Aspirin Chewable 81 MG TAB PO SCH (09:00)
[2019-02-25] MEDS: Famotidine 20 MG TAB PO SCH (09:11)
[2019-02-25] MEDS: Hydroxychloroquine Sulfate 200 MG TAB PO SCH (09:12)
--- NOTE | 2019-02-25 11:07 | CON ---
DATE OF CONSULTATION: 02/24/2019 REASON FOR CONSULTATION: Chest pain. HISTORY OF PRESENT ILLNESS: Mr. Dukes is a pleasant 58-year-old white gentleman, who comes to the hospital for lightheadedness and dizziness. He was admitted to the hospital on the 11 of February, at which point he underwent heart catheterization and had to undergo PCI to the RCA with a 3.0 x 20 mm drug-eluting stent. He did well postoperatively. He no longer had chest pain. He has been doing well up until earlier on the , in the morning, he had a sudden onset of dizziness. He noticed a little congestion. He felt that he was coughing a lot more than normal. He felt a bad headache as well. He decided to come in for further evaluation. He denies any chest pain, tightness, or pressure. PAST MEDICAL HISTORY: 1. CAD, status post PCI of the RCA just 2 weeks ago. 2. Kidney stones. 3. Type 2 diabetes, on chronic insulin. 4. Rheumatoid arthritis. SURGICAL HISTORY: 1. Urethral stent secondary to kidney stones. 2. Inguinal hernia repair x2. 3. Right ankle surgery. SOCIAL HISTORY: No smoking. Remote tobacco history, quit 20 years ago. Continues to dip. No drugs. No alcohol. OUTPATIENT MEDICATIONS: Include, 1. Lantus units b.i.d. 2. Xanax. 3. Aspirin 81 a day. 4. Plaquenil. 5. Humalog. 6. Lisinopril 5 mg a day. 7. Quetiapine. 8. Toprol-XL 25 mg a day. 9. Trintellix. 10. Brilinta 90 mg b.i.d. 11. Simvastatin 10 mg q.h.s. 12. Metformin 500 b.i.d. 13. Prednisone 7.5 mg a day. FAMILY HISTORY: Noncontributory. REVIEW OF SYSTEMS: A 12-point review of systems was done and was all negative unless stated in the history of present illness. PHYSICAL EXAMINATION: VITAL SIGNS: Temperature 97.7, pulse 66, respiratory rate 18, saturating 97% on room air, and blood pressure 110/56. GENERAL: Awake, alert, and oriented x3, in no distress. HEENT: Normocephalic and atraumatic. NECK: Supple. LUNGS: Clear. CARDIOVASCULAR: S1 and S2. No S3 or S4. No murmurs. ABDOMEN: Soft. Positive bowel sounds. EXTREMITIES: No edema. SKIN: Warm and dry. LABORATORY DATA: Laboratory work was reviewed. Troponins have been negative x2. Procalcitonin negative. Lipase is negative. His creatinine is a little bit up today from 1.2 to 1.4. His sugar was down when he came in originally at 50 up to 170s. Calcium is normal. UA with ketones, 4+ crystals, but no blood. ASSESSMENT: 1. Dizziness. 2. Recent stenting to the RCA, stable at this time. No evidence of acute coronary syndrome. 3. Acute on chronic kidney injury. PLAN: 1. Likely a little volume down. He has received fluids. He also received some D50 in the ER to raise his glucose. He has had low glucoses in the past and he does not feel this was low glucose as this is not how it feels. We will plan on doing a CT of the head to make sure there is nothing else going on that may make him dizzy. Most likely, he is just a little fluid down. 2. We will get an echocardiogram. 3. If all this is negative, he should be able to be discharged home from the cardiac perspective. Thank you for letting us to participate in the care of your patient. We will follow. Job ID: [id number]
[2019-02-25] MEDS: Acetaminophen 325 MG TAB PO PRN (11:14)
[2019-02-25] MEDS: HumaLOG 300 UNITS/3 ML VIAL SC PRN (11:14)
--- NOTE | 2019-02-25 11:55 | CT ---
CT OF THE BRAIN WITHOUT CONTRAST: Date: 02/25/19 COMPARISON: None. HISTORY: Patient had a heart stent placed on January 13. Blurry vision yesterday and headaches. Lightheadedness and syncope. TECHNIQUE: Multiple contiguous axial images were obtained in a CT of the brain without contrast. FINDINGS: The brain is normal in morphology and attenuation without focal lesions or confluent areas of infarct ion. There is no evidence of hydrocephalus, intracranial hemorrhage, or extra-axial fluid collection. The calvarium and overlying soft tissues are unremarkable. The visualized paranasal sinuses and masto id air cells are well aerated. IMPRESSION: No evidence of acute intracranial abnormality. POS: TPC
--- NOTE | 2019-02-25 13:18 | PDOC.HOSPP ---
- Subjective Encounter Date: 02/25/19 Encounter Time: 09:00 Subjective: no chest pain or sob is ambulating freely in room chewing tobacco - Objective Vital Signs & Weight: Vital Signs (12 hours) Temp Pulse Pulse Pulse Resp BP BP 02/25/19 09:45 82 80 135/74 129/68 02/25/19 09:10 84 83 134/83 135/74 02/25/19 08:15 02/25/19 07:30 97.7 F 66 18 02/25/19 05:00 61 02/25/19 04:00 97.8 F 58 L 16 BP BP Pulse Ox 02/25/19 09:45 02/25/19 09:10 02/25/19 08:15 97 02/25/19 07:30 117/57 L 97 02/25/19 05:00 120/66 02/25/19 04:00 92/51 L 98 Weight Weight 218 lb 8 oz I&O: 02/24/19 02/25/19 02/26/19 06:59 06:59 06:59 Intake Total 2130 Output Total 3100 Balance -970 Result Diagrams: 02/25/19 04:14 02/25/19 04:14 Additional Labs: Accuchecks 02/25/19 02/25/19 02/24/19 10:49 05:43 20:15 POC Glucose 170 H 149 H 154 H 02/24/19 02/24/19 16:38 14:16 POC Glucose 209 H 122 H Hospitalist ROS - Medication Medications: Active Medications Generic Name Dose Route Start Last Admin Trade Name Freq PRN Reason Stop Dose Admin Acetaminophen 650 mg 02/24/19 12:47 02/25/19 11:14 Tylenol PO 650 mg Q4H PRN Administration Headache/Fever/Mild Pain (1-3) Aspirin 81 mg 02/25/19 09:00 02/25/19 09:12 Aspirin Chewable PO 81 mg DAILY KIRIT Administration Famotidine 20 mg 02/24/19 21:00 02/25/19 09:11 Pepcid PO 20 mg BID KIRIT Administration Hydroxychloroquine Sulfate 200 mg 02/24/19 21:00 02/25/19 09:12 Plaquenil PO 200 mg BID KIRIT Administration Insulin Human Lispro 0 units 02/24/19 12:46 02/25/19 11:14 Humalog SC 2 unit .MODERATE SLIDING SC PRN Administration Moderate Correctional Scale Metoprolol Succinate 25 mg 02/25/19 09:00 02/25/19 09:12 Toprol Xl PO 25 mg DAILY KIRIT Administration Prednisone 7.5 mg 02/25/19 09:00 02/25/19 09:12 Prednisone PO 7.5 mg DAILY KIRIT Administration Quetiapine Fumarate 50 mg 02/24/19 21:00 02/24/19 21:03 Seroquel PO 50 mg HS KIRIT Administration Simvastatin 10 mg 02/24/19 21:00 02/24/19 21:06 Zocor PO 10 mg HS KIRIT Administration Ticagrelor 90 mg 02/25/19 09:00 02/25/19 09:11 Brilinta PO 90 mg BID KIRIT Administration - Exam General Appearance: awake alert Eye: PERRL, anicteric sclera ENT: no oropharyngeal lesions, moist mucosa Neck: supple, no JVD Heart: RRR, no murmur Respiratory: no wheezes, no rales Gastrointestinal: soft, non-tender, non-distended, normal bowel sounds Extremities: no cyanosis, no edema Neurological: cranial nerve grossly intact, no focal deficits Psychiatric: normal affect, A&O x 3 Hosp A/P (1) Chest pain Code(s): R07.9 - CHEST PAIN, UNSPECIFIED Status: Resolved (2) CAD (coronary artery disease) Code(s): I25.10 - ATHSCL HEART DISEASE OF [place] CORONARY ARTERY W/O ANG PCTRS Status: Chronic Qualifiers: Coronary Disease-Associated Artery/Lesion type: elem artery [place] vs. transplanted heart: elem heart Associated angina: without angina Qualified Code(s): I25.10 - Atherosclerotic heart disease of [place] coronary artery without angina pectoris (3) Anxiety Code(s): F41.9 - ANXIETY DISORDER, UNSPECIFIED Status: Chronic (4) DM2 (diabetes mellitus, type 2) Status: Chronic Qualifiers: Diabetes mellitus intermediate project manager insulin use: without intermediate project manager use (5) HTN (hypertension) Code(s): I10 - ESSENTIAL (PRIMARY) HYPERTENSION Status: Chronic Qualifiers: Hypertension type: essential hypertension Qualified Code(s): I10 - Essential (primary) hypertension (6) Obesity (BMI 30.0-34.9) Code(s): E66.9 - OBESITY, UNSPECIFIED Status: Chronic (7) Tobacco chew use Code(s): Z72.0 - TOBACCO USE Status: Chronic - Plan dizziness on arrival with chest pain has resolved now await echo results CT brain shows no cva hemostable dc plan home if echo shows no sig changes when compared to old one continue asp, brilinta, zocor, toprol xl, seroquel, prednisone, plaquenil and pepcid.
[2019-02-25] MEDS: Vancomycin HCl 1.5 GM in Sodium Chloride 0.9% 250 ML 300 ML IVPB SCH (13:51)
[2019-02-25 13:54] VITALS: BP 111/58; TEMP 97.9
--- NOTE | 2019-02-25 17:50 | DIS ---
DATE OF ADMISSION: 02/24/2019 DATE OF DISCHARGE: 02/25/2019 DISCHARGE DISPOSITION: Home. PRIMARY DISCHARGE DIAGNOSES: 1. Dizziness/near-syncope, resolved. 2. Chest pain, resolved. SECONDARY DISCHARGE DIAGNOSES: Coronary artery disease with prior stent placed to right coronary artery, diabetes mellitus type 2, tobacco chewing, hypertension, anxiety disorder, obesity. PROCEDURES DONE DURING HOSPITALIZATION: Chest x-ray showed no acute cardiopulmonary abnormality. CT brain without contrast showed no acute intracranial abnormality. Echo with 2D Doppler showed an EF of 50% to 55%. There was diastolic dysfunction. Also inferolateral hypokinesis was seen. Blood cultures x2, preliminary no growth. Initial white count of 21.8, discharge white count 7.8, hemoglobin and hematocrit 11 and 35, platelet count 249 with 50% neutrophils. BUN 16 and creatinine 1.4. Troponin x2 negative. Procalcitonin 0.09. Lipase was 30. Initial serum glucose was 51 on arrival. DISCHARGE MEDICATIONS: 1. Plaquenil 200 mg p.o. twice daily. 2. Humalog 5 units subcu twice daily. 3. Xanax 1 mg p.o. daily p.r.n. for anxiety. 4. Lantus 50 units subcu twice daily. 5. Lisinopril 5 mg p.o. daily. 6. Prednisone 7.5 mg p.o. daily. 7. Seroquel 50 mg p.o. at bedtime. 8. Simvastatin 10 mg p.o. at bedtime. 9. Trintellix 20 mg daily. 10. Aspirin 81 mg daily. 11. Metformin 500 mg p.o. twice daily. 12. Toprol-XL 25 mg daily. 13. Brilinta 90 mg twice daily. ALLERGIES: NO KNOWN DRUG ALLERGIES. DISCHARGE PLAN: The patient to follow up with his primary care physician, Dr. Vicente Laureano in 1 week. He needs to follow up with Dr. Oscar in 2 weeks. BRIEF COURSE DURING HOSPITALIZATION: The patient initially got admitted on the with complaints of chest pain and dizziness. The patient had significant coronary artery disease with prior history of stenting done to RCA in the early part of this month. He has had multiple workups done, which have all been negative so far. He was severely dehydrated and was gently hydrated during his stay here. Prior to discharge, he is ambulating and eating well. Echo was done, which showed inferolateral hypokinesis, likely the area of RCA lesion with recent stenting done. His CT brain did not reveal any acute intracranial abnormality. The patient's repeat white count of 7.8. Initial H and H were 14 and 42, a repeat one showing H and H of 11 and 35. Likely, the elevated white count was margination from severe dehydration. The patient did not have any fever here. He has remained hemodynamically stable. His chest pain has completely resolved. The patient was counseled regarding tobacco chewing. He is hemodynamically stable and has been cleared by Dr. Oscar for discharge. The patient needs to come to the ER if he develops fever or cough or expectoration. He is immunosuppressed with him being on prednisone with history of rheumatoid arthritis. His prednisone is slowly being tapered by his in class special education teacher. He is wanting to go home this evening. Please see a [id number] documentation for the day of discharge on [employer]. Job ID: [id number]
--- NOTE | 2019-02-25 17:58 | PDOC.CPN ---
- Subjective Date: 02/25/19 Time: 17:53 Interval history: He is doing well. he feels back to normal. - Review of Systems General: denies: fever/chills, weight/appetite/sleep changes, night sweats, fatigue Respiratory: denies: cough, congestion, shortness of breath, exercise intolerance Cardiovascular: denies: chest pain, palpitation, edema, paroxysmal nocturnal dyspnea, orthopnea Gastrointestinal: denies: nausea, vomiting, diarrhea, constipation, abd pain, GI bleeding Musculoskeletal: denies: pain, tenderness, stiffness, swelling, arthritis/ arthralgias Neurological: denies: numbness, syncope, seizure, weakness - Objective Allergies/Adverse Reactions: Allergies Allergy/AdvReac Type Severity Reaction Status Date / Time No Known Allergies Allergy Unverified 02/11/19 16:35 Visit Medications: Current Medications Acetaminophen (Tylenol) 650 mg PO Q4H PRN PRN Reason: Headache/Fever/Mild Pain (1-3) Last Admin: 02/25/19 11:14 Dose: 650 mg Hydrocodone Bitart/Acetaminophen ([place] 5/325) 1 tab PO Q4H PRN PRN Reason: Moderate Pain (4-6) Hydrocodone Bitart/Acetaminophen ([place] 7.5/325) 1 tab PO Q4H PRN PRN Reason: Severe Pain (7-10) Albuterol/Ipratropium (Duoneb) 3 ml NEB [id number] PRN PRN Reason: SOB &/or Wheezing Alprazolam (Xanax) 0.5 mg PO Q4H PRN PRN Reason: Anxiety Aspirin (Aspirin Chewable) 81 mg PO DAILY [facility] Last Admin: 02/25/19 09:12 Dose: 81 mg Benzonatate (Tessalon) 100 mg PO Q4H PRN PRN Reason: Cough Bisacodyl (Dulcolax) 10 mg PO DAILYPRN PRN PRN Reason: Constipation Calcium Carbonate (Tums) 1,000 mg PO Q4H PRN PRN Reason: Heartburn or Indigestion Dextrose/Water (Dextrose 50%) 25 gm SLOW IVP PRN PRN PRN Reason: Hypoglycemia Diphenhydramine HCl (Benadryl) 25 mg PO Q6H PRN PRN Reason: Itching & Insomnia Docusate Sodium (Colace) 100 mg PO BIDPRN PRN PRN Reason: Constipation Famotidine (Pepcid) 20 mg PO BID [facility] Last Admin: 02/25/19 09:11 Dose: 20 mg Glucagon (Glucagon) 1 mg IM PRN PRN PRN Reason: Hypoglycemia Hydralazine HCl (Apresoline) 10 mg SLOW IVP Q4H PRN PRN Reason: SBP Greater Than 180 Hydroxychloroquine Sulfate (Plaquenil) 200 mg PO BID [facility] Last Admin: 02/25/19 09:12 Dose: 200 mg Dextrose/Water (D5w) 1,000 mls @ 0 mls/hr IV .Q0M PRN PRN Reason: Hypoglycemia Insulin Human Lispro (Humalog) 0 units SC .MODERATE SLIDING SC PRN PRN Reason: Moderate Correctional Scale Last Admin: 02/25/19 11:14 Dose: 2 unit Insulin Human Lispro (Humalog) 0 units SC .BEDTIME SLIDING SC PRN PRN Reason: Bedtime Correctional Scale Metoprolol Succinate (Toprol Xl) 25 mg PO DAILY [facility] Last Admin: 02/25/19 09:12 Dose: 25 mg (Vortioxetine Hydrobromide [ Trintellix] 20 Mg) 20 mg PO DAILY [facility] Ondansetron HCl (Zofran Odt) 4 mg PO Q6H PRN PRN Reason: Nausea/Vomiting Ondansetron HCl (Zofran) 4 mg IVP Q6H PRN PRN Reason: Nausea/Vomiting Prednisone (Prednisone) 7.5 mg PO DAILY [facility] Last Admin: 02/25/19 09:12 Dose: 7.5 mg Quetiapine Fumarate (Seroquel) 50 mg PO [facility] Last Admin: 02/24/19 21:03 Dose: 50 mg Senna/Docusate Sodium (Senokot S) 2 tab PO BID PRN PRN Reason: Constipation Simvastatin (Zocor) 10 mg PO HS [facility] Last Admin: 02/24/19 21:06 Dose: 10 mg Ticagrelor (Brilinta) 90 mg PO BID [facility] Last Admin: 02/25/19 09:11 Dose: 90 mg Vital Signs & Weight: Vital Signs Temp Pulse Pulse Pulse Resp BP BP 02/25/19 11:17 97.9 F 74 20 02/25/19 09:45 82 80 135/74 129/68 02/25/19 09:10 84 83 134/83 135/74 02/25/19 08:15 02/25/19 07:30 97.7 F 66 18 BP BP BP BP Pulse Ox 02/25/19 11:17 125/63 118/58 L 111/58 L 98 02/25/19 09:45 02/25/19 09:10 02/25/19 08:15 97 02/25/19 07:30 117/57 L 97 Admit Weight 218 lb 8 oz Weight 218 lb 8 oz - Physical Exam General: alert & oriented x3, no apparent distress HEENT: mucus membranes moist, normocephaly Neck: supple neck, midline trachea Cardiac: no murmur, regular rate, regular rhythm Lungs: clear to auscultation, normal breath sounds Neuro: grossly intact, coordination normal Abdomen: active bowel sounds, soft, non-tender Skin: clear Musculoskeletal: normal range of motion, no pain - Labs Result Diagrams: 02/25/19 04:14 02/25/19 04:14 Troponin/CKMB Troponin I Less than 0.010 ng/mL (< 0.028) 02/24/19 18:35 - Telemetry Sinus rhythms and dysrhythmias: sinus rhythm - Assessment/Plan Assessment/Plan: 1. Pre syncope. 2. NORMA likely pre renal. 3. Anemia PLAN; - He is doing well. - Drop in Hgb likely due to dilution a she received IV fluids, no evidence of bleeding, no melena, hematemesis or hematochezia. - May D/C home. - Plan to follow up in 2-4 weeks with pre clinic CBC. - Continue Brilinta and aspirin for now.
--- NOTE | 2019-02-27 09:07 | PQF ---
[employer] Operator Crystal Reports Winform ViewerCLIFFORD AGUILAR RMEY MAURICIO MD [id number] CLINICAL DOCUMENTATION CLARIFICATION FORM: POST DISCHARGE Addendum to original discharge summary date: ____ Late entry note date: __ DATE: 02/27/2019 ATTN:REMY MAURICIO MD Please exercise your independent, professional judgment in responding to the clarification form. Clinical indicators are provided on the bottom of this form for your review Please check appropriate box(s): Syncope Due to: [ ] Acute kidney injury [ ] Anemia [ x ] Dehydration [ ] Other diagnosis [ ] Unable to determine For continuity of documentation, please document condition throughout progress notes and discharge summary. Thank You. CLINICAL INDICATORS - SIGNS / SYMPTOMS / LABS - Pre syncope-Cardiology PN, 02/25, Roderick Oscar MD - NORMA likely pre renal- Cardiology PN, 02/25, Roderick Oscar MD - Anemia-Cardiology PN, 02/25, Roderick Oscar MD - Drop in hgb likely due to dilution a she received IV fluids-Cardiology PN, , Roderick Oscar MD RISK FACTORS - Leukocytosis- Hospital PN, 02/25, Elsie lopez PA-C - DM type 2-Hospital PN, 02/25, Elsie lopez PA-C - Lack of appetite-Hospital PN, 02/25, Elsie lopez PA-C TREATMENTS -Dextrose.IV-MAR, 02/24 -Gently hydrated-, 924, REMY MAURICIO MD (This form is maintained as a part of the permanent medical record) 2014 [employer]. All Rights Reserved [employer] Operator Crystal Reports Winform Viewerkiymagdlaena Cameron [ not provided] [not provided] MTDD
== END 2019-02-25 18:34 | disposition home or self-care (01) | DRG 641 ==
LOC: ERS 09:51 → 2NO 12:44
PROVIDERS: ADMIT Internal Medicine; ATTEND Internal Medicine
DX: E86.0 Dehydration (principal); N17.9 Acute kidney failure, unspecified; R55 Syncope and collapse; R42 Dizziness and giddiness; R07.9 Chest pain, unspecified; I25.10 Atherosclerotic heart disease of native coronary artery without angina pectoris; F17.220 Nicotine dependence, chewing tobacco, uncomplicated; F41.9 Anxiety disorder, unspecified; F32.9 Major depressive disorder, single episode, unspecified; I12.9 Hypertensive chronic kidney disease with stage 1 through stage 4 chronic kidney disease, or unspecified chronic kidney disease; R63.0 Anorexia; D63.1 Anemia in chronic kidney disease; E11.22 Type 2 diabetes mellitus with diabetic chronic kidney disease; N18.2 Chronic kidney disease, stage 2 (mild); E66.9 Obesity, unspecified; M06.9 Rheumatoid arthritis, unspecified; Z95.5 Presence of coronary angioplasty implant and graft; Z68.33 Body mass index [BMI] 33.0-33.9, adult; Z79.4 Long term (current) use of insulin; Z90.49 Acquired absence of other specified parts of digestive tract
CPT/HCPCS: 36415; 36416; 70450; 71045; 80048; 80053; 81001; 82550; 83605; 83690; 83735; 84145; 84484; 85025; 85379; 87040; 93005; 93306; 96365; 96367; 96375; J1644; J1815; J1956; J2543; J3370; J3490; J7050; J7512

== ENCOUNTER 2019-10-17 22:01 | Emergency (ER) | payer OTHER ==
--- NOTE | 2019-10-18 07:23 | RAD ---
2 VIEWS CHEST: Date: 10/17/2019 COMPARISON: 09/21/2018. HISTORY: Fever with body aches and chest pain. Patient is being tested for COVID pneumonia. FINDINGS: Two views of the chest show normal sized cardiomediastinal silhouette. There is no evidence of consol idation, mass, or pleural effusion. The bones are unremarkable. IMPRESSION: No evidence of acute cardiopulmonary disease. POS: EAA
--- NOTE | 2019-10-21 15:48 | EKG ---
Test Reason : Blood Pressure : / mmHG Vent. Rate : 088 BPM Atrial Rate : 088 BPM P-R Int : 110 ms QRS Dur : 148 ms QT Int : 394 ms P-R-T Axes : 027 -60 012 degrees QTc Int : 476 ms Sinus rhythm with short MN Right bundle branch block Left anterior fascicular block Bifascicular block Septal infarct , age undetermined Abnormal ECG Confirmed by INDIRA SERRANO ([id number]), editor in chief newspaper JOEY PINA ([id number]) on 10/21/2019 3:48:29 PM Referred By: Confirmed By:INDIRA SERRANO
== END 2019-10-18 00:08 | disposition home or self-care (01) ==
LOC: ERS 22:01
DX: J06.9 Acute upper respiratory infection, unspecified (principal); E11.9 Type 2 diabetes mellitus without complications; F41.9 Anxiety disorder, unspecified; F32.9 Major depressive disorder, single episode, unspecified; F17.220 Nicotine dependence, chewing tobacco, uncomplicated; Z79.899 Other long term (current) drug therapy
CPT/HCPCS: 71046; 93005